=== PATIENT | female | born 1985 | race African-American/Black ===

== ENCOUNTER 2021-11-09 11:14 | Outpatient (CLI) | payer OTHER, SELFPAY ==
--- NOTE | ~2021-11-09 | MMUS_ITS ---
EXAMINATION: MM diagnostic obie BI w jean claude, US breast LT complete HISTORY: Bloody nipple discharge of the left breast for one and a half weeks. TECHNIQUE: Additional 3-D tomosynthesis images of the breasts were performed and synthetic 2-D images were generated. CAD analysis was submitted and interpreted. High resolution complete left breast ult rasound was performed. COMPARISON: None BREAST PARENCHYMAL COMPOSITION: BREAST PARENCHYMAL COMPOSITION: There are scattered areas of fibroglandular density. FINDINGS: MAMMOGRAPHIC FINDINGS: There are no suspicious masses, calcifications or architectural distortion in either breast to sugges t malignancy. ULTRASOUND: Complete US of all 4 quadrants of the left breast and retroareolar region was reviewed. There is hypo echoic soft tissue within the subareolar ducts of the left breast measuring 9 x 2 x 4 mm. IMPRESSION: 1. Hypoechoic soft tissue within a focally dilated duct of the left breast near the nipple measuring 9 x 2 x 4 mm. 2. Ultrasound-guided biopsy recommended. BI-RADS category 4, suspicious findings. Reviewed, dictated and finalized at location A. IMPRESSION: 1. Hypoechoic soft tissue within a focally dilated duct of the left breast near the nipple measuring 9 x 2 x 4 mm. 2. Ultrasound-guided biopsy recommended. BI-RADS category 4, suspicious findings.
== END 2021-11-09 11:15 | disposition home or self-care (01) ==
PROVIDERS: Visit Provider Nurse Practitioner
DX: N64.52 Nipple discharge (principal); Z80.3 Family history of malignant neoplasm of breast; R92.8 Other abnormal and inconclusive findings on diagnostic imaging of breast
CPT/HCPCS: 76641; 77062; 77066; G0279